=== PATIENT | male | born 1975 | race Asian ===

== ENCOUNTER 2017-02-07 08:17 | Day surgery (SDC) | payer BC ==
[~2017-02-07] VITALS: Ht 185.4 cm; Wt 89.8 kg
[2017-02-07] MEDS ORDERED: LR 1,000 ML IV SCH (11:29)
[2017-02-07] MEDS ORDERED: MEPERIDINE HCL/PF 25 MG/ML DISP.SYRIN IVP PRN ×2 (11:30)
[2017-02-07] MEDS ORDERED: HYDROmorphone 1 MG INJ. 1 MG/ML AMPUL IVP PRN (11:30)
[2017-02-07] MEDS ORDERED: HYDROmorphone 2 MG/ML VIAL IVP PRN ×2 (11:30)
[2017-02-07] MEDS ORDERED: ONDANSETRON HCL 4 MG/2 ML VIAL IVP PRN (11:30)
[2017-02-07] MEDS ORDERED: HYDROcodone/ACETAMIN 5-325 MG TAB (NORCO/ VICODIN) PO PRN (12:15)
[2017-02-07] MEDS: HYDROmorphone 1 MG INJ. 1 MG/ML AMPUL ONE (12:30)
[2017-02-07] MEDS: LABETALOL 100 MG/ 20ML VIAL ONE (12:36)
[2017-02-07] MEDS ORDERED: LABETALOL 100 MG/ 20ML VIAL IVP ONE (13:00)
[2017-02-07] MEDS ORDERED: hydrALAZINE HCL 20 MG/ML VIAL ONE (13:10)
[2017-02-07] MEDS ORDERED: hydrALAZINE HCL 20 MG/ML VIAL IVP ONE (13:15)
[2017-02-07 14:33] VITALS: BP_SYST 158
== END 2017-02-07 14:30 | disposition home or self-care (01) ==
LOC: SDS 08:17 → SMU 08:17 → SDS 14:30
PROVIDERS: ATTEND Otolaryngology Plastic Surgery within the Head & Neck
DX: J34.2 Deviated nasal septum (principal); J34.3 Hypertrophy of nasal turbinates; J34.89 Other specified disorders of nose and nasal sinuses
CPT/HCPCS: 30140; 30520; A4649; J0360; J1170; J3490; J7120